=== PATIENT | female | born 1985 | race Caucasian/White ===

== ENCOUNTER 2017-02-05 14:55 | Emergency (ER) | payer BC ==
[2017-02-05 15:10] VITALS: BP 135/83; PULSE 107; RESP 20; TEMP 99; O2SAT 99
--- NOTE | 2017-02-05 15:34 | ED PDOC ---
HPI: Headache Time Seen by Provider: 02/05/17 15:15 Chief Complaint (Nursing): Headache Chief Complaint (Provider): Headache History Per: Patient History/Exam Limitations: no limitations Onset/Duration Of Symptoms: Other (3 weeks) Current Symptoms Are (Timing): Still Present Additional Complaint(s): Patient is a 31 y/o female with a past medical history of headaches and asthma presenting to the emergency department for a worsening headache with associated dizziness and sensation of losing her balance. Also reports feeling like the room is spinning (and the last time this sensation occurred was yesterday). Also notes that she sustained head trauma three weeks ago and noticed a bump on her head two days ago. Denies other complaints. PCP: Dr. Tera Gallegos Past Medical History Reviewed: Historical Data, Nursing Documentation, Vital Signs Vital Signs: Last Vital Signs Temp 99 F 02/05/17 15:06 Pulse 107 H 02/05/17 15:06 Resp 20 02/05/17 15:06 BP 135/83 02/05/17 15:06 Pulse Ox 99 02/05/17 15:06 - Medical History PMH: Asthma, HTN, Migraine - Family History Family History: States: Unknown Family Hx - Immunization History Hx Tetanus Toxoid Vaccination: No Hx Influenza Vaccination: No Hx Pneumococcal Vaccination: No - Home Medications Home Medications: Ambulatory Orders Medication Instructions Recorded Amlodipine Besylate and Benazepril 10 - 20 mg PO DAILY 05/20/13 Hydrochlor Fluticasone Nasal [Flonase] 0.05 mg NS DAILY #1 spr 12/01/13 Prednisone 20 mg PO DAILY #10 tab 12/01/13 Nabumetone [Relafen] 500 mg PO BID #20 tab 04/25/15 Neomycin/Polymyxin/Hydrocort 4 drop TOP ASDIR #1 bottle 04/25/15 [Cortisporin Otic Soln] Naproxen [Naprosyn] 500 mg PO BID PRN #15 tablet 10/28/15 oxyCODONE/Acetaminophen [Percocet 1 tab PO Q6 PRN #20 tab 10/28/15 5/325 mg Tab] Meclizine [Antivert] 1 - 2 tab PO Q6 PRN #24 tab 02/05/17 - Allergies Allergies/Adverse Reactions: Allergies Allergy/AdvReac Type Severity Reaction Status Date / Time Penicillins AdvReac RASH Verified 10/28/15 10:44 Review of Systems ROS Statement: Except As Marked, All Systems Reviewed And Found Negative Neurological: Positive for: Headache, Dizziness, Other (room spinning sensation) Physical Exam - Reviewed Nursing Documentation Reviewed: Yes Vital Signs Reviewed: Yes - Physical Exam Appears: Positive for: Well, Non-toxic, No Acute Distress Head Exam: Positive for: NORMAL INSPECTION (1 cm region of induration noted with no erythema or fluctuance noted on superior aspect of scalp. ) Skin: Positive for: Normal Color, Warm, Dry Eye Exam: Positive for: Normal appearance (left lazy eye noted) ENT: Positive for: Normal ENT Inspection Neck: Positive for: Normal Cardiovascular/Chest: Positive for: Regular Rate, Rhythm Respiratory: Negative for: Accessory Muscle Use, Respiratory Distress Extremity: Positive for: Normal ROM Neurologic/Psych: Positive for: Alert, Oriented (x3) - Laboratory Results Result Diagrams: 02/05/17 15:30 02/05/17 15:30 - ECG O2 Sat by Pulse Oximetry: 99 (RA) Pulse Ox Interpretation: Normal - Progress ED Course And Treament: HEAD CT: IMPRESSION: No acute intracranial abnormalities. No significant findings to account for the clinical presentation. Medical Decision Making Medical Decision Making: Time: 15:16 Initial impression: Headache Initial plan: CT Head Scan without contrast Labs: BMP, MG, CBC ED Urine ~ Scribe Attestation: Documented by Richa Coburn, acting as a scribe for ROSENDA Curran. Provider Scribe Attestation: All medical record entries made by the Scribe were at my direction and personally dictated by me. I have reviewed the chart and agree that the record accurately reflects my personal performance of the history, physical exam, medical decision making, and the department course for this patient. I have also personally directed, reviewed, and agree with the discharge instructions and disposition. Disposition - Clinical Impression Clinical Impression: Headache - Patient ED Disposition Is Patient to be Admitted: No - Disposition Referrals: [facility] [place] [Outside] Disposition: Routine/Home Disposition Time: 17:25 Condition: FAIR Prescriptions: Meclizine [Antivert] 1 - 2 tab PO Q6 PRN #24 tab PRN Reason: Dizziness Instructions: Vertigo (ED), Migraine Headache (ED) Forms: [employer] (Pashto)
[2017-02-05 15:48] LABS: BASO # 0.1 K/uL (0.0-0.2); BASO % 0.8 % (0.0-2.0); EOS % 0.2 % (0.0-4.0); HEMATOCRIT 37.5 % (34.0-47.0); LYMPH # 2.3 K/uL (1.0-4.3); LYMPH % 19.8 % (20.0-40.0); MEAN CELL VOLUME 87.8 fl (81.0-99.0); MEAN CORPUSCULAR HEMOGLOBIN 29.4 pg (27.0-31.0); MEAN CORPUSCULAR HGB CONC 33.5 g/dL (33.0-37.0); MEAN PLATELET VOLUME 9.2 fl (7.2-11.7); MONO # 0.4 K/uL (0.0-0.8); MONO % 3.4 % (0.0-10.0); NEUT # 8.9 K/uL (1.8-7.0); NEUT % 75.8 % (50.0-75.0); RED CELL DISTRIBUTION WIDTH 14.9 % (11.5-14.5); WHITE BLOOD COUNT 11.7 K/uL (4.8-10.8)
[2017-02-05 16:03] LABS: BLOOD UREA NITROGEN 23 mg/dl (7-17); CALCIUM 9.9 mg/dL (8.4-10.2); CARBON DIOXIDE 23 mmol/L (22-30); CHLORIDE 101 mmol/L (98-107); GFR AFRICAN-AMERICAN > 60; GLUCOSE,RANDOM 128 mg/dL (65-105); MAGNESIUM 2.1 MG/DL (1.6-2.3); POTASSIUM 3.8 MMOL/L (3.6-5.0); SODIUM 140 mmol/l (132-148)
--- NOTE | 2017-02-05 17:19 | CT ---
PROCEDURE: CT HEAD WITHOUT CONTRAST. HISTORY: Unspecified head injury COMPARISON: None available. TECHNIQUE: Axial computed tomography images were obtained through the head/brain without intravenous contrast. Coronal and sagittal reconstructed images. Radiation dose: Total exam DLP = 839.86 MGy-cm. This CT exam was performed using one or more of the following dose reduction techniques: Automated exposure control, adjustment of the mA and/or kV according to patient size, and/or use of iterative reconstruction technique. FINDINGS: HEMORRHAGE: No intracranial hemorrhage. BRAIN: No mass effect or edema. No atrophy or chronic microvascular ischemic changes. VENTRICLES: Unremarkable. No hydrocephalus. CALVARIUM: Unremarkable. PARANASAL SINUSES: Unremarkable as visualized. No significant inflammatory changes. MASTOID AIR CELLS: Unremarkable as visualized. No inflammatory changes. OTHER FINDINGS: None. IMPRESSION: No acute intracranial abnormalities. No significant findings to account for the clinical presentation.
== END 2017-02-05 18:33 | disposition home or self-care (01) ==
LOC: H.ER 14:55
DX: R51 Headache (principal); I10 Essential (primary) hypertension; J45.909 Unspecified asthma, uncomplicated; Z88.0 Allergy status to penicillin

== ENCOUNTER 2017-05-13 15:22 | Emergency (ER) | payer BC ==
[2017-05-13 15:43] VITALS: BP 149/81; PULSE 117; RESP 18; TEMP 99; O2SAT 99
[2017-05-13] MEDS ORDERED: Lidocaine 5% Patch TD STA (16:20)
--- NOTE | 2017-05-13 16:56 | ED PDOC ---
Lower Extremity Pain/Injury Time Seen by Provider: 05/13/17 16:06 Chief Complaint (Nursing): Lower Extremity Problem/Injury Chief Complaint (Provider): Left Knee and Left Elbow Pain History Per: Patient History/Exam Limitations: no limitations Onset/Duration Of Symptoms: Days (x3 weeks) Current Symptoms Are (Timing): Still Present Additional Complaint(s): 31 year old female with a past medical history of chronic bilateral knee pain secondary to arthritis and surgery in both knees, who presents to the ED complaining of left knee and left elbow pain x3 weeks. States she had injections to her left knee 3 weeks ago and 2 weeks ago, and reports pain to the site since. Also reports initial bruising to her knee, but states it has resolved. Reports taking ibuprofen with minimal relief. States left elbow pain has lasted a few weeks. Says she woke up with it and thought she may have slept on it funny. States the elbow pain resolved, but returned 2 days ago. Reports the pain radiates down to her forearm and up her upper arm. Denies fever , numbness, weakness, or swelling. Orthopedist: Dr. Laguerre in [place], who is unavailable at the moment due to vacation. PMD: Dr. Dumont in Past Medical History Reviewed: Historical Data, Nursing Documentation, Vital Signs Vital Signs: Last Vital Signs Temp 99.0 F 05/13/17 15:40 Pulse 117 H 05/13/17 15:40 Resp 18 05/13/17 15:40 BP 149/81 05/13/17 15:40 Pulse Ox 99 05/13/17 15:40 - Medical History PMH: Asthma, HTN, Migraine - Surgical History Other surgeries: Bilateral knee surgery - Family History Family History: States: Unknown Family Hx - Social History Current smoker - smoking cessation education provided: No - Immunization History Hx Tetanus Toxoid Vaccination: No Hx Influenza Vaccination: No Hx Pneumococcal Vaccination: No - Home Medications Home Medications: Ambulatory Orders Medication Instructions Recorded Amlodipine Besylate and Benazepril 10 - 20 mg PO DAILY 05/20/13 Hydrochlor Fluticasone Nasal [Flonase] 0.05 mg NS DAILY #1 spr 12/01/13 Prednisone 20 mg PO DAILY #10 tab 12/01/13 Nabumetone [Relafen] 500 mg PO BID #20 tab 04/25/15 Neomycin/Polymyxin/Hydrocort 4 drop TOP ASDIR #1 bottle 04/25/15 [Cortisporin Otic Soln] Naproxen [Naprosyn] 500 mg PO BID PRN #15 tablet 10/28/15 oxyCODONE/Acetaminophen [Percocet 1 tab PO Q6 PRN #20 tab 10/28/15 5/325 mg Tab] Meclizine [Antivert] 1 - 2 tab PO Q6 PRN #24 tab 02/05/17 Lidocaine 5% [Lidoderm] 1 ea TD DAILY PRN #30 patch 05/13/17 traMADol [Ultram] 50 mg PO TID PRN #15 tab 05/13/17 - Allergies Allergies/Adverse Reactions: Allergies Allergy/AdvReac Type Severity Reaction Status Date / Time Penicillins AdvReac RASH Verified 10/28/15 10:44 Review of Systems ROS Statement: Except As Marked, All Systems Reviewed And Found Negative (as per HPI) Constitutional: Negative for: Fever, Chills Musculoskeletal: Positive for: Arm Pain, Leg Pain Physical Exam - Reviewed Nursing Documentation Reviewed: Yes Vital Signs Reviewed: Yes - Physical Exam Appears: Positive for: Non-toxic, No Acute Distress Head Exam: Positive for: ATRAUMATIC, NORMOCEPHALIC Skin: Positive for: Warm, Dry Neck: Positive for: Painless ROM, Supple Extremity: Positive for: Other (LEFT elbow: No deformity, no swelling, FROM, strength 5/5 flex/ext, mild ttp lateral elbow to forearm and upper arm. Neurovasc intact distally. LEFT knee: No deformity. Mild diffuse edema, especially LEFT lateral knee with lateral tenderness. Flex/ext 4+/5. Neurovasc intact distally.) Lymphatic: Negative for: Adenopathy Neurologic/Psych: Positive for: Alert. Negative for: Motor/Sensory Deficits - ECG O2 Sat by Pulse Oximetry: 99 (RA) Pulse Ox Interpretation: Normal Medical Decision Making Medical Decision Making: Time: 16:19 Initial Impression: Acute on chronic and post procedural left knee pain. Left elbow pain sprain vs contusion vs arthritis. Plan: --X-Ray left knee 3 views --Lidocaine 5% --Toradol 15 mg IVP --Tylenol 975 mg PO --X-Ray left elbow 3 views --Reevaluation Time: 16:43 Left Knee X-Ray Findings: BONES: No interval fracture or hardware failure noted. The 3 anterior to posterior tibial tuberosity level screws are intact. No irregularity or fragmentation to the anterior tibial tuberosity appearance suggested. The patellar intramedullary yon lucency is similar in appearance to the medial femoral condylar metaphyseal- epiphyseal junctional anchor is unchanged. JOINTS: Trace tibial spine spurring compatible with minimal arthrosis JOINT EFFUSION: None. OTHER FINDINGS: None. IMPRESSION: Stable postop changes No interval pathology appreciated Time: 16:43 Left Elbow X-Ray Findings: BONES: Normal. No fracture. JOINTS: Normal. No osteoarthritis. SOFT TISSUES: Normal. JOINT EFFUSION: None. OTHER FINDINGS: None IMPRESSION: Unremarkable radiographs of the left elbow. DW pt findings. Pt has appointment with ortho Thursday. Advised rest and will rx tramadol. Also advised f/u with PMD in 24-48 hours for further evaluation of polyarthritis, given elbow is now with pain. Scribe Attestation: Documented by Santiago Velazquez acting as a scribe for June Valle MD. Scribe Attestation: All medical record entries made by the Scribe were at my direction and personally dictated by me. I have reviewed the chart and agree that the record accurately reflects my personal performance of the history, physical exam, medical decision making, and the department course for this patient. I have also personally directed, reviewed, and agree with the discharge instructions and disposition. Disposition - Clinical Impression Clinical Impression: Knee pain, Elbow pain Counseled Patient/Family Regarding: Studies Performed, Diagnosis, Need For Followup, Rx Given (educated on dangers of narcotic pain medications) - Disposition Referrals: Tera Dumont MD [Family Provider] - (VISIT YOUR DOCTOR IN 24-48 HOURS FOR FURTHER EVALUATION VISIT YOUR ORTHOPEDIST SCHEDULED NEXT WEEK) Disposition: Routine/Home Disposition Time: 17:00 Condition: STABLE Prescriptions: Lidocaine 5% [Lidoderm] 1 ea TD DAILY PRN #30 patch PRN Reason: PAIN traMADol [Ultram] 50 mg PO TID PRN #15 tab PRN Reason: SEVERE PAIN ONLY Instructions: Elbow Sprain (ED), Knee Pain (ED) [facility] School/Work Excuse
--- NOTE | 2017-05-13 17:00 | RAD ---
PROCEDURE: Radiographs of the left elbow. HISTORY: pain COMPARISON: No prior. FINDINGS: BONES: Normal. No fracture. JOINTS: Normal. No osteoarthritis. SOFT TISSUES: Normal. JOINT EFFUSION: None. OTHER FINDINGS: None IMPRESSION: Unremarkable radiographs of the left elbow.
--- NOTE | 2017-05-13 17:00 | RAD ---
PROCEDURE: Left Knee Radiographs. HISTORY: Pain. COMPARISON: 10/28/2015 FINDINGS: BONES: No interval fracture or hardware failure noted. The 3 anterior to posterior tibial tuberosity level screws are intact. No irregularity or fragmentation to the anterior tibial tuberosity appearance suggested. The patellar intramedullary yon lucency is similar in appearance to the medial femoral condylar metaphyseal- epiphyseal junctional anchor is unchanged. JOINTS: Trace tibial spine spurring compatible with minimal arthrosis JOINT EFFUSION: None. OTHER FINDINGS: None. IMPRESSION: Stable postop changes No interval pathology appreciated
[2017-05-13] MEDS ORDERED: Lidocaine 5% Patch TD ONE (17:05)
== END 2017-05-13 18:08 | disposition home or self-care (01) ==
LOC: H.ER 15:22
DX: M25.562 Pain in left knee (principal); M25.522 Pain in left elbow; M13.0 Polyarthritis, unspecified
CPT/HCPCS: 73080; 73562; 96372; 99282; J1885

== ENCOUNTER 2017-09-16 09:39 | Emergency (ER) | payer BC ==
[2017-09-16 09:47] VITALS: BMI 28.4
[2017-09-16 09:48] VITALS: O2SAT 99
--- NOTE | 2017-09-16 10:43 | ED PDOC ---
HPI: Chest Pain Time Seen by Provider: 09/16/17 09:40 Chief Complaint (Nursing): Chest Pain Chief Complaint (Provider): Chest Pain History Per: Patient History/Exam Limitations: no limitations Onset/Duration Of Symptoms: Days (x 1 week ) Current Symptoms Are (Timing): Still Present Quality: "Pain" Additional Complaint(s): 31 year old female presents to the ED with constant chest pain for the last week. Patient reports that the pain starts in the center of her chest and often radiates to left side as well as the back occasionally. It hurts when she takes deep breaths. Patient describes pain as a "7 out of 10". Denies cough, fever, nausea and vomiting. PMD: Past Medical History Reviewed: Historical Data, Nursing Documentation, Vital Signs Vital Signs: Last Vital Signs Temp 97.8 F 09/16/17 14:22 Pulse 105 H 09/18/17 01:23 Resp 18 09/16/17 14:22 BP 120/67 09/16/17 14:22 Pulse Ox 99 09/18/17 01:23 - Medical History PMH: Asthma, HTN, Migraine - Surgical History Other surgeries: 10 knee surgeries - Family History Family History: States: Other Other Family History: "heart problems" diagnosed at a young age on mother's side - Social History Current smoker - smoking cessation education provided: No Alcohol: None Drugs: Denies - Immunization History Hx Tetanus Toxoid Vaccination: No Hx Influenza Vaccination: No Hx Pneumococcal Vaccination: No - Home Medications Home Medications: Ambulatory Orders Medication Instructions Recorded Amlodipine Besylate and Benazepril 10 - 20 mg PO DAILY 05/20/13 Hydrochlor Fluticasone Nasal [Flonase] 0.05 mg NS DAILY #1 spr 12/01/13 Prednisone 20 mg PO DAILY #10 tab 12/01/13 Nabumetone [Relafen] 500 mg PO BID #20 tab 04/25/15 Neomycin/Polymyxin/Hydrocort 4 drop TOP ASDIR #1 bottle 04/25/15 [Cortisporin Otic Soln] Naproxen [Naprosyn] 500 mg PO BID PRN #15 tablet 10/28/15 oxyCODONE/Acetaminophen [Percocet 1 tab PO Q6 PRN #20 tab 10/28/15 5/325 mg Tab] Meclizine [Antivert] 1 - 2 tab PO Q6 PRN #24 tab 10/26/17 Lidocaine 5% [Lidoderm] 1 ea TD DAILY PRN #30 patch 05/13/17 traMADol [Ultram] 50 mg PO TID PRN #15 tab 05/13/17 - Allergies Allergies/Adverse Reactions: Allergies Allergy/AdvReac Type Severity Reaction Status Date / Time Penicillins AdvReac RASH Verified 10/28/15 10:44 YARON Risk Score for UA/NSTEMI - YARON Risk Score Age > 64: NO 3 or more CAD Risk Factors: NO Known CAD (Stenosis greater than 50%): NO Aspirin use in past 7 days: NO Severe Angina: NO EKG ST changes greater than 0.5mm: NO Positive Cardiac Marker: NO YARON Score: 0 Risk %: 5% Wells Criteria for PE - Wells Criteria for Pulmonary Embolism Clinical Signs and Symptoms of DVT: No P.E is #1 Diagnosis, or Equally Likely: No Heart Rate >100: No Immobilization at least 3 days;Surgery previous 4 weeks: No Previous, objectively diagnosed PE or DVT: No Hemoptysis: No Malignancy w/treatment within 6 months, or palliative: No Total Score: 0 Review of Systems ROS Statement: Except As Marked, All Systems Reviewed And Found Negative Cardiovascular: Positive for: Chest Pain (middle; radiates to left and sometimes back) Physical Exam - Reviewed Nursing Documentation Reviewed: Yes Vital Signs Reviewed: Yes - Physical Exam Appears: Positive for: Non-toxic, No Acute Distress Head Exam: Positive for: ATRAUMATIC, NORMAL INSPECTION, NORMOCEPHALIC Skin: Positive for: Normal Color, Warm, Dry Eye Exam: Positive for: EOMI, Normal appearance, PERRL Neck: Positive for: Normal, Painless ROM, Supple Cardiovascular/Chest: Positive for: Regular Rate, Rhythm. Negative for: Murmur Gastrointestinal/Abdominal: Positive for: Normal Exam, Soft. Negative for: Tenderness Extremity: Positive for: Normal ROM. Negative for: Deformity Neurologic/Psych: Positive for: Alert, Oriented (x 3). Negative for: Motor/ Sensory Deficits - Laboratory Results Result Diagrams: 09/16/17 11:25 09/16/17 11:25 - ECG ECG: Positive for: Interpreted By Me, Viewed By Me ECG Rhythm: Positive for: Sinus Tachycardia Rate: 105 O2 Sat by Pulse Oximetry: 99 (RA) Pulse Ox Interpretation: Normal Medical Decision Making Medical Decision Making: Time: 11:25 Initial Plan; chest pain, atypical rule out cardiac verus pe --CBC --CMP --Troponin I --D Dimer labs reviewed, wnl cxr reviewed wnl pt feels improved 14:05 -Upon provider reevaluation patient is feeling better, is medically stable, and requires no further treatment in the ED at this time. Counseling was provided and all questions were answered regarding diagnosis and need for follow up with PMD. There is agreement to discharge plan. Return if symptoms persist or worsen. Scribe Attestation: Documented by Eliz Mcnally, acting as a scribe for Tonio Hennessy MD Provider Scribe Attestation: All medical record entries made by the Scribe were at my direction and personally dictated by me. I have reviewed the chart and agree that the record accurately reflects my personal performance of the history, physical exam, medical decision making, and the department course for this patient. I have also personally directed, reviewed, and agree with the discharge instructions and disposition. Disposition - Clinical Impression Clinical Impression: Atypical chest pain - Patient ED Disposition Is Patient to be Admitted: No Counseled Patient/Family Regarding: Studies Performed, Diagnosis, Need For Followup - Disposition Referrals: [facility] [Outside] [facility] [Outside] Disposition: Routine/Home Disposition Time: 12:05 Condition: IMPROVED Additional Instructions: follow up with your doctor in 1-2 days return to the ED with any worsening or concerning symptoms Instructions: Chest Pain That Is Not Caused by the Heart (DC) Forms: [employer] (Bulgarian)
[2017-09-16 11:43] LABS: BASO % 0.6 % (0.0-2.0); EOS % 0.5 % (0.0-4.0); LYMPH # 2.5 K/uL (1.0-4.3); LYMPH % 30.1 % (20.0-40.0); MEAN CELL VOLUME 86.5 fl (81.0-99.0); MEAN CORPUSCULAR HEMOGLOBIN 29.7 pg (27.0-31.0); MEAN CORPUSCULAR HGB CONC 34.3 g/dL (33.0-37.0); MONO # 0.5 K/uL (0.0-0.8); MONO % 5.5 % (0.0-10.0); NEUT # 5.3 K/uL (1.8-7.0); NEUT % 63.3 % (50.0-75.0); NRBC % 0.1 % (0.0-0.0); RBC 4.38 Mil/uL (3.80-5.20); RED CELL DISTRIBUTION WIDTH 14.2 % (11.5-14.5); WHITE BLOOD COUNT 8.4 K/uL (4.8-10.8)
[2017-09-16 11:47] LABS: ALB/GLOB RATIO 1.3 (1.0-2.1); ALBUMIN 4.4 g/dL (3.5-5.0); ALT/SGPT 24 U/L (9-52); AST/SGOT 21 U/L (14-36); BLOOD UREA NITROGEN 16 mg/dl (7-17); CALCIUM 9.8 mg/dL (8.4-10.2); GFR AFRICAN-AMERICAN > 60; GFR NON-AFRICAN AMERICAN > 60
[2017-09-16 14:24] VITALS: BP 120/67; RESP 18; TEMP 97.8
--- NOTE | 2017-09-16 16:06 | RAD ---
HISTORY: chest pain COMPARISON: 01/15/2014 TECHNIQUE: Chest PA and lateral FINDINGS: LUNGS: No active pulmonary disease. PLEURA: No significant pleural effusion identified. No pneumothorax apparent. CARDIOVASCULAR: Normal. OSSEOUS STRUCTURES: No significant abnormalities. VISUALIZED UPPER ABDOMEN: Normal. OTHER FINDINGS: None. IMPRESSION: No active disease.
[2017-09-17 22:53] VITALS: PULSE 105
== END 2017-09-16 14:17 | disposition home or self-care (01) ==
LOC: H.ER 09:39
DX: R07.89 Other chest pain (principal); I10 Essential (primary) hypertension; J45.909 Unspecified asthma, uncomplicated; Z88.0 Allergy status to penicillin
CPT/HCPCS: 71046; 80053; 81025; 84484; 85025; 85378; 96374; 99283; J1885

== ENCOUNTER 2017-11-02 14:29 | Emergency (ER) | payer BC ==
[2017-11-02 14:29] VITALS: BMI 28.4
[2017-11-02] MEDS ORDERED: Sodium Chloride 0.9% 1,000 ML IV STA (15:36)
[2017-11-02] MEDS ORDERED: Dextrose 5%/0.9% NS 1,000 ML IV SCH (15:45)
--- NOTE | 2017-11-02 15:58 | ED PDOC ---
HPI: Abdomen Time Seen by Provider: 11/02/17 15:29 Chief Complaint (Nursing): Abdominal Pain Chief Complaint (Provider): Abdominal Pain History Per: Patient History/Exam Limitations: no limitations Onset/Duration Of Symptoms: Persistent (x1 week) Current Symptoms Are (Timing): Still Present Additional Complaint(s): 31 year old female with medical history of HTN and migraines, presents to the emergency department with complaints of lower left abdominal pain associated with nausea, loss of appetite and constipation ongoing for 1 week. Patient states pain is worse after eating and has taken Smooth Move, Miralax and Tums with minimal relief. She denies any fever, chills, dysuria, hematuria, vaginal discharge, vaginal bleeding, black or bloody stools. PMD: Dr. Shaik Rodriguez Past Medical History Reviewed: Historical Data, Nursing Documentation, Vital Signs Vital Signs: Last Vital Signs Temp 99.3 F 11/02/17 14:56 Pulse 94 H 11/02/17 14:56 Resp 19 11/02/17 14:56 BP 125/84 11/02/17 14:56 Pulse Ox 99 11/02/17 17:56 - Medical History PMH: Asthma, HTN, Migraine Other PMH: osteoarthritis - Surgical History Surgical History: No Surg Hx - Family History Family History: States: Hypertension Other Family History: gastritis - Social History Current smoker - smoking cessation education provided: No Alcohol: None Drugs: Denies - Immunization History Hx Tetanus Toxoid Vaccination: No Hx Influenza Vaccination: No Hx Pneumococcal Vaccination: No - Home Medications Home Medications: Ambulatory Orders Medication Instructions Recorded Amlodipine Besylate and Benazepril 10 - 20 mg PO DAILY 05/20/13 Hydrochlor Fluticasone Nasal [Flonase] 0.05 mg NS DAILY #1 spr 12/01/13 Prednisone 20 mg PO DAILY #10 tab 12/01/13 Nabumetone [Relafen] 500 mg PO BID #20 tab 04/25/15 Neomycin/Polymyxin/Hydrocort 4 drop TOP ASDIR #1 bottle 04/25/15 [Cortisporin Otic Soln] Naproxen [Naprosyn] 500 mg PO BID PRN #15 tablet 10/28/15 oxyCODONE/Acetaminophen [Percocet 1 tab PO Q6 PRN #20 tab 10/28/15 5/325 mg Tab] Meclizine [Antivert] 1 - 2 tab PO Q6 PRN #24 tab 02/05/17 Lidocaine 5% [Lidoderm] 1 ea TD DAILY PRN #30 patch 05/13/17 traMADol [Ultram] 50 mg PO TID PRN #15 tab 05/13/17 Ibuprofen [Motrin Tab] 600 mg PO Q8 PRN #30 tab 11/02/17 Polyethylene Glycol 3350 [Miralax] 17 gm PO DAILY PRN #1 bottle 11/02/17 Sod Phos,M-B/Na Phos,Di-Ba [Fleet 135 ml RC PRN PRN #1 enema 11/02/17 Enema] - Allergies Allergies/Adverse Reactions: Allergies Allergy/AdvReac Type Severity Reaction Status Date / Time Penicillins AdvReac RASH Verified 10/28/15 10:44 Review of Systems ROS Statement: Except As Marked, All Systems Reviewed And Found Negative Constitutional: Negative for: Fever, Chills Gastrointestinal: Positive for: Nausea, Abdominal Pain (lower left), Constipation, Other (decreased appetite). Negative for: Melena, Hematochezia Genitourinary Female: Negative for: Dysuria, Hematuria, Vaginal Discharge, Vaginal Bleeding Musculoskeletal: Positive for: Back Pain (lower) Physical Exam - Reviewed Nursing Documentation Reviewed: Yes Vital Signs Reviewed: Yes - Physical Exam Appears: Positive for: Non-toxic, In Acute Distress (mildly painful) Head Exam: Positive for: ATRAUMATIC, NORMOCEPHALIC Skin: Positive for: Warm, Dry Eye Exam: Positive for: EOMI, PERRL ENT: Negative for: Pharyngeal Erythema, Tonsillar Exudate Neck: Positive for: Painless ROM, Supple Cardiovascular/Chest: Positive for: Regular Rate, Rhythm. Negative for: Murmur Respiratory: Positive for: Normal Breath Sounds. Negative for: Wheezing Gastrointestinal/Abdominal: Positive for: Bowel Sounds (hyperactive), Soft, Tenderness (LLQ and suprapubic). Negative for: Mass, Guarding, Rebound Back: Negative for: L CVA Tenderness, R CVA Tenderness Extremity: Positive for: Normal ROM. Negative for: Deformity Lymphatic: Negative for: Adenopathy Neurologic/Psych: Positive for: Alert. Negative for: Motor/Sensory Deficits - Laboratory Results Result Diagrams: 11/02/17 15:54 11/02/17 15:54 - ECG O2 Sat by Pulse Oximetry: 99 (RA) Pulse Ox Interpretation: Normal Medical Decision Making Medical Decision Making: Initial Impression: LLQ pain Differential Diagnosis: Diverticulitis; Colitis; constipation; ovarian cyst; enteritis Initial Plan: * CT ABD/pelvis with IV contrast * CMP * Urine * Urine dipstick * CBC * Dextrose 1,000ml IV per 100mls/hr * NS 1,000ml IV per 1,000mls/hr * Toradol 15mg IVP * Zofran inj 4mg IVP Labs demonstrate no emergently significant abnormalities Accession No. : [id number] Patient Name / ID : GLO ORELLANA / [id number] Exam Date : 11/02/2017 16:40:02 ( Approved ) Study Comment : Sex / Age : F / 31Y Creator : Willie Cat MD Dictator : Willie Cat MD Aerial Photograph Interpreter : Tray Server : Willie Cat MD Approver2 : Report Date : 11/02/2017 17:26:50 My Comment : Date of service: 11/02/2017 PROCEDURE: CT Abdomen and Pelvis with contrast HISTORY: LLQ pain r/o diverticulitis/colitis COMPARISON: None. TECHNIQUE: Contrast dose: 95 mL Omnipaque 300 Radiation dose: Total exam DLP = 732.2 mGy-cm. This CT exam was performed using one or more of the following dose reduction techniques: Automated exposure control, adjustment of the mA and/or kV according to patient size, and/or use of iterative reconstruction technique. FINDINGS: LOWER THORAX: Unremarkable. LIVER: Mild hepatic steatosis. No gross lesion or ductal dilatation. GALLBLADDER AND BILE DUCTS: Unremarkable. PANCREAS: Unremarkable. No gross lesion or ductal dilatation. SPLEEN: Unremarkable. ADRENALS: Unremarkable. No mass. KIDNEYS AND URETERS: Left interpolar 1.3 x 1.5 cm angiomyolipoma. No hydronephrosis. No solid mass. VASCULATURE: Unremarkable. No aortic aneurysm. BOWEL: Prominent amount of retained colonic stool. No obstruction. No gross mural thickening. APPENDIX: Normal appendix. PERITONEUM: Unremarkable. No free fluid. No free air. LYMPH NODES: Unremarkable. No enlarged lymph nodes. BLADDER: Unremarkable. REPRODUCTIVE: Involuting left corpus luteal follicle measuring 1.5 x 1.8 cm. BONES: No acute fracture. OTHER FINDINGS: None. IMPRESSION: Prominent amount of retained colonic stool. No evidence of diverticulosis. Involuting left corpus luteal follicle. DW pt findings. Fleet enema ordered. 8p Pt had 2 bowel movements in ER. Eager to be discharged. Advised diet changes and daily stool softener and increase fluids. Fleet can be repeated at home as well. Scribe Attestation: Documented by Odalis Ayers, acting as a scribe for June Valle MD. Provider Scribe Attestation: All medical record entries made by the Scribe were at my direction and personally dictated by me. I have reviewed the chart and agree that the record accurately reflects my personal performance of the history, physical exam, medical decision making, and the department course for this patient. I have also personally directed, reviewed, and agree with the discharge instructions and disposition. Disposition - Clinical Impression Clinical Impression: Constipation, Ovarian cyst Counseled Patient/Family Regarding: Studies Performed, Diagnosis, Need For Followup, Rx Given - Disposition Referrals: Shaik Rodriguez MD [Primary Care Provider] - (FOLLOW UP WITH DR RODRIGUEZ IN 5- 7 DAYS) Disposition: Routine/Home Disposition Time: 20:00 Condition: IMPROVED Additional Instructions: RETURN TO ER FOR : --SEVERE INTRACTABLE PAIN OR VOMITING --HIGH FEVER --FAINTING OR NEAR FAINTING --ANY OTHER WORRISOME SYMPTOMS OTHERWISE FOLLOW UP WITH DR RODRIGUEZ IN A WEEK FOR FURTHER EVALUATION ESTEBAN CODY, thank you for letting us take care of you today. Your provider was June Valle MD and you were treated for ABD PAIN. The emergency medical care you received today was directed at your acute symptoms. If you were prescribed any medication, please fill it and take as directed. It may take several days for your symptoms to resolve. Return to the Emergency Department if your symptoms worsen, do not improve, or if you have any other problems. Please contact your doctor or call one of the physicians/clinics you have been referred to that are listed on the Patient Visit Information form that is included in your discharge packet. Bring any paperwork you were given at discharge with you along with any medications you are taking to your follow up visit. Our treatment cannot replace ongoing medical care by a primary care provider outside of the emergency department. Thank you for allowing the [facility] team to be part of your care today. Prescriptions: Ibuprofen [Motrin Tab] 600 mg PO Q8 PRN #30 tab PRN Reason: Pain, Moderate (4-7) Polyethylene Glycol 3350 [Miralax] 17 gm PO DAILY PRN #1 bottle PRN Reason: Constipation Sod Phos,M-B/Na Phos,Di-Ba [Fleet Enema] 135 ml RC PRN PRN #1 enema PRN Reason: Constipation Instructions: Ovarian Cysts, Constipation in Adults
[2017-11-02 16:00] LABS: BASO # 0.1 K/uL (0.0-0.2); BASO % 0.5 % (0.0-2.0); EOS # 0.1 K/uL (0.0-0.7); EOS % 0.6 % (0.0-4.0); HEMOGLOBIN 13.3 g/dL (12.0-16.0); LYMPH # 2.9 K/uL (1.0-4.3); LYMPH % 28.5 % (20.0-40.0); MEAN CELL VOLUME 87.1 fl (81.0-99.0); MEAN CORPUSCULAR HEMOGLOBIN 29.8 pg (27.0-31.0); MEAN CORPUSCULAR HGB CONC 34.2 g/dL (33.0-37.0); MEAN PLATELET VOLUME 9.4 fl (7.2-11.7); MONO # 0.7 K/uL (0.0-0.8); MONO % 6.5 % (0.0-10.0); NEUT # 6.6 K/uL (1.8-7.0); NEUT % 63.9 % (50.0-75.0); RBC 4.45 Mil/uL (3.80-5.20); RED CELL DISTRIBUTION WIDTH 14.7 % (11.5-14.5); WHITE BLOOD COUNT 10.3 K/uL (4.8-10.8)
[2017-11-02 16:07] LABS: ALB/GLOB RATIO 1.5 (1.0-2.1); ALT/SGPT 16 U/L (9-52); AST/SGOT 26 U/L (14-36); BLOOD UREA NITROGEN 14 mg/dl (7-17); CALCIUM 9.9 mg/dL (8.4-10.2); GFR AFRICAN-AMERICAN > 60; GFR NON-AFRICAN AMERICAN > 60
[2017-11-02] MEDS ORDERED: Iohexol 300 100 ML IJ ONE (16:14)
[2017-11-02] MEDS ORDERED: Sodium Chloride 0.9% 100 ML ONE (16:14)
--- NOTE | 2017-11-02 17:28 | CT ---
Date of service: 11/02/2017 PROCEDURE: CT Abdomen and Pelvis with contrast HISTORY: LLQ pain r/o diverticulitis/colitis COMPARISON: None. TECHNIQUE: Contrast dose: 95 mL Omnipaque 300 Radiation dose: Total exam DLP = 732.2 mGy-cm. This CT exam was performed using one or more of the following dose reduction techniques: Automated exposure control, adjustment of the mA and/or kV according to patient size, and/or use of iterative reconstruction technique. FINDINGS: LOWER THORAX: Unremarkable. LIVER: Mild hepatic steatosis. No gross lesion or ductal dilatation. GALLBLADDER AND BILE DUCTS: Unremarkable. PANCREAS: Unremarkable. No gross lesion or ductal dilatation. SPLEEN: Unremarkable. ADRENALS: Unremarkable. No mass. KIDNEYS AND URETERS: Left interpolar 1.3 x 1.5 cm angiomyolipoma. No hydronephrosis. No solid mass. VASCULATURE: Unremarkable. No aortic aneurysm. BOWEL: Prominent amount of retained colonic stool. No obstruction. No gross mural thickening. APPENDIX: Normal appendix. PERITONEUM: Unremarkable. No free fluid. No free air. LYMPH NODES: Unremarkable. No enlarged lymph nodes. BLADDER: Unremarkable. REPRODUCTIVE: Involuting left corpus luteal follicle measuring 1.5 x 1.8 cm. BONES: No acute fracture. OTHER FINDINGS: None. IMPRESSION: Prominent amount of retained colonic stool. No evidence of diverticulosis. Involuting left corpus luteal follicle.
[2017-11-02 20:51] VITALS: BP 120/82; PULSE 90; RESP 18; TEMP 98.7; O2SAT 100
== END 2017-11-02 20:30 | disposition home or self-care (01) ==
LOC: H.ER 14:29 → SUPCPDRO 14:29 → H.ER 20:30
DX: N83.202 Unspecified ovarian cyst, left side (principal); K59.00 Constipation, unspecified; Z88.0 Allergy status to penicillin
CPT/HCPCS: 74177; 80053; 81025; 85025; 96361; 96374; 96375; 99284; J1885; J2405; J7030; Q9967

== ENCOUNTER 2018-07-22 13:59 | Emergency (ER) | payer BC, OTHER ==
[2018-07-22 14:00] VITALS: BMI 28.4
[2018-07-22] MEDS ORDERED: Iohexol 240 (50 ml) PO ONE (15:27)
[2018-07-22] MEDS ORDERED: Sodium Chloride 0.9% 1,000 ML IV STA (15:28)
[2018-07-22] MEDS ORDERED: Iohexol 240 (50 ml) ONE (15:35)
--- NOTE | 2018-07-22 16:00 | ED PDOC ---
HPI: General Adult Time Seen by Provider: 07/22/18 14:45 Chief Complaint (Nursing): Abdominal Pain Chief Complaint (Provider): Abdominal Pain History Per: Patient History/Exam Limitations: no limitations Onset/Duration Of Symptoms: Days (7) Additional Complaint(s): 32 y/o female presents to the ED due to diffuse abdominal pain thats been ongoing for a week. Patient states she feels bloated after eating with an occasional blood in stool. She reports she been having this for months but gradually gotten worse this week. She states she has a doctor but hasnt gotten any workup for this pain. Patient denies any fever, diarrhea, constipation, or straining. PMD: has a new dr kay Past Medical History Vital Signs: Last Vital Signs Temp 98.7 F 07/22/18 14:56 Pulse 96 H 07/22/18 14:56 Resp 16 07/22/18 14:56 BP 133/93 H 07/22/18 14:56 Pulse Ox 94 L 07/22/18 14:56 - Medical History PMH: Asthma, HTN, Hyperlipidemia, Migraine - Surgical History Other surgeries: knee surgery. - Family History Family History: States: Unknown Family Hx, Hypertension - Social History Current smoker - smoking cessation education provided: No Alcohol: None Drugs: Denies - Immunization History Hx Tetanus Toxoid Vaccination: No Hx Influenza Vaccination: No Hx Pneumococcal Vaccination: No - Home Medications Home Medications: Ambulatory Orders Medication Instructions Recorded Amlodipine Besylate and Benazepril 10 - 20 mg PO DAILY 05/20/13 Hydrochlor Fluticasone Nasal [Flonase] 0.05 mg NS DAILY #1 spr 12/01/13 Prednisone 20 mg PO DAILY #10 tab 12/01/13 Nabumetone [Relafen] 500 mg PO BID #20 tab 04/25/15 Neomycin/Polymyxin/Hydrocort 4 drop TOP ASDIR #1 bottle 04/25/15 [Cortisporin Otic Soln] Naproxen [Naprosyn] 500 mg PO BID PRN #15 tablet 10/28/15 oxyCODONE/Acetaminophen [Percocet 1 tab PO Q6 PRN #20 tab 10/28/15 5/325 mg Tab] Meclizine [Antivert] 1 - 2 tab PO Q6 PRN #24 tab 02/05/17 Lidocaine 5% [Lidoderm] 1 ea TD DAILY PRN #30 patch 05/13/17 traMADol [Ultram] 50 mg PO TID PRN #15 tab 05/13/17 Ibuprofen [Motrin Tab] 600 mg PO Q8 PRN #30 tab 11/02/17 Polyethylene Glycol 3350 [Miralax] 17 gm PO DAILY PRN #1 bottle 11/02/17 Sod Phos,M-B/Na Phos,Di-Ba [Fleet 135 ml RC PRN PRN #1 enema 11/02/17 Enema] Pantoprazole Sodium [Protonix] 20 mg PO DAILY #10 tab 07/22/18 - Allergies Allergies/Adverse Reactions: Allergies Allergy/AdvReac Type Severity Reaction Status Date / Time Penicillins AdvReac RASH Verified 10/28/15 10:44 Review of Systems ROS Statement: Except As Marked, All Systems Reviewed And Found Negative Constitutional: Negative for: Fever Gastrointestinal: Positive for: Abdominal Pain, Other (occasion blood in stool). Negative for: Diarrhea, Constipation Genitourinary Female: Negative for: Dysuria, Frequency, Incontinence, Hematuria, Vaginal Discharge, Vaginal Bleeding, Pelvic Pain Physical Exam - Reviewed Nursing Documentation Reviewed: Yes Vital Signs Reviewed: Yes - Physical Exam Appears: Positive for: No Acute Distress Head Exam: Positive for: ATRAUMATIC, NORMOCEPHALIC Skin: Positive for: Normal Color, Warm, DRY Eye Exam: Positive for: Normal appearance ENT: Positive for: Normal ENT Inspection Neck: Positive for: Normal, Painless ROM Cardiovascular/Chest: Positive for: Regular Rate, Rhythm. Negative for: Murmur Respiratory: Positive for: Normal Breath Sounds. Negative for: Respiratory Distress Gastrointestinal/Abdominal: Positive for: Normal Exam, Tenderness Back: Positive for: Normal Inspection Extremity: Positive for: Normal ROM Neurological/Psych: Positive for: Awake, Alert, Oriented (x3). Negative for: Motor/Sensory Deficits - Laboratory Results Result Diagrams: 07/22/18 15:50 07/22/18 15:50 - ECG O2 Sat by Pulse Oximetry: 94 Medical Decision Making Medical Decision Making: Time:1527 Initial Impression: abdominal pain, rule out intraabdominal process, electrolyte abnormality Initial Plan: -CT -CMP -CBC -Sodium chloride 1000ml IV -Omnipaque 50ml PO -Toradol 15mg IVP -Urinalysis CT FINDINGS: LOWER THORAX: Unremarkable. LIVER: Unremarkable. No gross lesion or ductal dilatation. GALLBLADDER AND BILE DUCTS: Unremarkable. PANCREAS: Unremarkable. No gross lesion or ductal dilatation. SPLEEN: Unremarkable. ADRENALS: Unremarkable. No mass. KIDNEYS AND URETERS: Unremarkable. No hydronephrosis. No solid mass. Incidental finding(s): Stable left angiomyolipoma midpole region 1.3 cm. VASCULATURE: Unremarkable. No aortic aneurysm. No atherosclerotic calcification or mural pl aque present. BOWEL: Constipation without fecal impaction or obstruction. APPENDIX: A normal appendix is visualized in it's entirety. PERITONEUM: Unremarkable. No free fluid. No free air. LYMPH NODES: Unremarkable. No enlarged lymph nodes. BLADDER: Unremarkable. REPRODUCTIVE: Unremarkable. Bilateral adnexal cysts, follicles identified. BONES: No acute fracture. OTHER FINDINGS: None. IMPRESSION: No acute or significant findings related to/ accounting for the clinical presentation. Additional benign and/or incidental findings described above. No significant interval change compared to the prior examination(s). 2015 [facility] stool examination done with stool brown and no signs of blood. Sent sample for occult study. Otherwise, hemaglobin stable, vitals stable, and patient is no active bleeding at this time. Will be d/c with referral for outpatient follow up to GI and a script for Pepcid. All questions answered and return parameters discussed. pt stable for discharge, instructed outpt follow up Scribe Attestation: Documented by Zoie Chan, acting as a scribe for Minoo Elizalde Provider Scribe Attestation: All medical record entries made by the Scribe were at my direction and personally dictated by me. I have reviewed the chart and agree that the record accurately reflects my personal performance of the history, physical exam, medical decision making, and the department course for this patient. I have also personally directed, reviewed, and agree with the discharge instructions and disposition. Disposition - Clinical Impression Clinical Impression: Abdominal pain, Rectal bleeding - Patient ED Disposition Is Patient to be Admitted: No Counseled Patient/Family Regarding: Studies Performed, Diagnosis, Need For Followup - Disposition Referrals: [facility] [Outside] Son Solis MD [Staff Provider] - Disposition: Routine/Home Disposition Time: 20:18 Condition: IMPROVED Additional Instructions: follow up with your primary doctor as well as the specialist GI doctor Dr Segun muro in 2 days return to the ED with any worsening or concerning symptoms Prescriptions: Pantoprazole Sodium [Protonix] 20 mg PO DAILY #10 tab Instructions: Bloody Stools, Adult (DC), Stomach Ache and Stomach Upset Forms: [employer] (Serbian)
[2018-07-22 16:23] LABS: BASO % 0.5 % (0.0-2.0); EOS % 0.5 % (0.0-4.0); LYMPH # 2.5 K/uL (1.0-4.3); LYMPH % 27.7 % (20.0-40.0); MEAN CELL VOLUME 88.5 fl (81.0-99.0); MEAN CORPUSCULAR HEMOGLOBIN 30.1 pg (27.0-31.0); MEAN CORPUSCULAR HGB CONC 34.1 g/dL (33.0-37.0); MEAN PLATELET VOLUME 9.9 fl (7.2-11.7); MONO # 0.5 K/uL (0.0-0.8); MONO % 5.7 % (0.0-10.0); NEUT # 5.8 K/uL (1.8-7.0); NEUT % 65.6 % (50.0-75.0); NRBC % 0.1 % (0.0-0.0); RBC 4.3 Mil/uL (3.80-5.20); RED CELL DISTRIBUTION WIDTH 14.2 % (11.5-14.5); WHITE BLOOD COUNT 8.8 K/uL (4.8-10.8)
[2018-07-22 16:26] LABS: ALB/GLOB RATIO 1.4 (1.0-2.1); ALBUMIN 4.9 g/dL (3.5-5.0); ALT/SGPT 26 U/L (9-52); AST/SGOT 20 U/L (14-36); BLOOD UREA NITROGEN 19 mg/dl (7-17); CALCIUM 10.1 mg/dL (8.4-10.2); GFR NON-AFRICAN AMERICAN > 60
[2018-07-22] MEDS ORDERED: Iohexol 300 100 ML IJ ONE (17:27)
[2018-07-22] MEDS ORDERED: Sodium Chloride 0.9% 50 ML IV ONE (17:28)
--- NOTE | 2018-07-22 18:05 | CT ---
Date of service: 07/22/2018 PROCEDURE: CT Abdomen and Pelvis with contrast HISTORY: Right-sided abdominal pain. COMPARISON: 11/02/2017. TECHNIQUE: Intravenous contrast dose: 95 cc Omnipaque 300. Radiation dose: Total exam DLP = 723.04 mGy-cm. This CT exam was performed using one or more of the following dose reduction techniques: Automated exposure control, adjustment of the mA and/or kV according to patient size, and/or use of iterative reconstruction technique. FINDINGS: LOWER THORAX: Unremarkable. LIVER: Unremarkable. No gross lesion or ductal dilatation. GALLBLADDER AND BILE DUCTS: Unremarkable. PANCREAS: Unremarkable. No gross lesion or ductal dilatation. SPLEEN: Unremarkable. ADRENALS: Unremarkable. No mass. KIDNEYS AND URETERS: Unremarkable. No hydronephrosis. No solid mass. Incidental finding(s): Stable left angiomyolipoma midpole region 1.3 cm. VASCULATURE: Unremarkable. No aortic aneurysm. No atherosclerotic calcification or mural plaque present. BOWEL: Constipation without fecal impaction or obstruction. APPENDIX: A normal appendix is visualized in it's entirety. PERITONEUM: Unremarkable. No free fluid. No free air. LYMPH NODES: Unremarkable. No enlarged lymph nodes. BLADDER: Unremarkable. REPRODUCTIVE: Unremarkable. Bilateral adnexal cysts, follicles identified. BONES: No acute fracture. OTHER FINDINGS: None. IMPRESSION: No acute or significant findings related to/ accounting for the clinical presentation. Additional benign and/or incidental findings described above. No significant interval change compared to the prior examination(s).
[2018-07-22 20:52] VITALS: BP 129/78; PULSE 75; RESP 18; TEMP 99.5; O2SAT 94
== END 2018-07-22 20:25 | disposition home or self-care (01) ==
LOC: H.ER 13:59
DX: R10.9 Unspecified abdominal pain (principal); K62.5 Hemorrhage of anus and rectum; E78.5 Hyperlipidemia, unspecified; I10 Essential (primary) hypertension; Z88.0 Allergy status to penicillin
CPT/HCPCS: 74177; 80053; 81025; 85025; 96361; 96374; 99284; G0328; J1885; J7030; Q9966; Q9967